=== PATIENT | female | born 1990 | race American Indian/Alaskan Native ===

== ENCOUNTER 2016-10-15 20:03 | Emergency (ER) | payer MEDICARE ==
[2016-10-15 22:19] LABS: Eosinophils % (Auto) 2.3 % (0.0-4.3); Hematocrit 41.6 % (30.3-42.9); Hemoglobin 13.8 gm/dl (10.1-14.3); Mean Corpuscular HGB Conc 33 % (30-34); Mean Corpuscular Hemoglobin 31 pg (28-32); Mean Corpuscular Volume 92 fl (79-97); White Blood Count 8.3 K/mm3 (4.5-11.0)
[2016-10-15 22:21] LABS: Platelet Count 153 K/mm3 (140-440)
[2016-10-15 22:33] LABS: Anion Gap 17 mmol/L; BUN/Creatinine Ratio 18.57; Blood Urea Nitrogen 13 mg/dL (7-17); Carbon Dioxide 23 mmol/L (22-30); Chloride 99.6 mmol/L (98-107); Glucose 88 mg/dL (65-100); Potassium 4.1 mmol/L (3.6-5.0); Sodium 135 mmol/L (137-145)
--- NOTE | 2016-10-16 00:11 | Emergency Department Report ---
HPI - General Chief Complaint: Psych Time Seen by Provider: 10/15/16 23:57 - HPI HPI: Room 17 The patient is a 26-year-old female presenting with a chief complaint of suicidal ideation. The patient states "I feel like killing myself." The patient states the thoughts began today. The patient states her plan to kill himself was to eat soap. Patient denies actually doing anything to try to harm herself. The patient has a history of bipolar disorder and schizophrenia Location: Mental state Duration: One day Quality: Suicidal Severity: Severe Modifying factors: [see above] Context: [see above] Mode of transportation: [not driving] ED Past Medical Hx - Past Medical History Previous Medical History?: Yes Hx Hypertension: Yes Hx Psychiatric Treatment: Yes (BIPOLAR, SCHIZOPHRENIA) - Surgical History Past Surgical History?: No - Family History Family history: no significant - Social History Smoking Status: Current Every Day Smoker Substance Use Type: None (denies illicit drug use) - Medications Home Medications: Home Medications Medication Instructions Recorded Confirmed Last Taken Type Olanzapine [ZyPREXA] 20 mg PO QHS 01/20/16 01/20/16 Unknown History risperiDONE [RisperiDONE] 3 mg PO BID 01/20/16 01/20/16 Unknown History ED Review of Systems ROS: Stated complaint: MH Other details as noted in HPI Comment: All other systems reviewed and negative Constitutional: denies: chills, fever Eyes: denies: eye pain, eye discharge, vision change ENT: denies: ear pain, throat pain Respiratory: denies: cough, shortness of breath, wheezing Cardiovascular: denies: chest pain, palpitations Endocrine: no symptoms reported Gastrointestinal: denies: abdominal pain, nausea, diarrhea Genitourinary: denies: urgency, dysuria, discharge Musculoskeletal: denies: back pain, joint swelling, arthralgia Skin: denies: rash, lesions Neurological: denies: headache, weakness, paresthesias Psychiatric: suicidal thoughts Hematological/Lymphatic: denies: easy bleeding, easy bruising Physical Exam - Physical Exam Vital Signs: Vital Signs 10/15/16 10/15/16 10/15/16 21:04 21:36 23:41 Temperature 98.6 F 98.6 F Pulse Rate 78 78 Respiratory 18 18 18 Rate Blood Pressure 125/79 Blood Pressure 125/79 [Right] O2 Sat by Pulse 98 98 Oximetry Physical Exam: GENERAL: The patient is well-developed well-nourished female lying on stretcher not appearing to be in acute distress. [] HEENT: Normocephalic. Atraumatic. Extraocular motions are intact. Patient has moist mucous membranes. NECK: Supple. Trachea midline CHEST/LUNGS: Clear to auscultation. There is no respiratory distress noted. HEART/CARDIOVASCULAR: Regular. There is no tachycardia. There is no gallop rub or murmur. ABDOMEN: Abdomen is soft, nontender. Patient has normal bowel sounds. There is no abdominal distention. SKIN: There is no rash. There is no edema. There is no diaphoresis. NEURO: The patient is awake, alert, and oriented. The patient is cooperative. The patient has normal speech MUSCULOSKELETAL: There is no evidence of acute injury. ED Course Vital Signs 10/15/16 10/15/16 10/15/16 21:04 21:36 23:41 Temperature 98.6 F 98.6 F Pulse Rate 78 78 Respiratory 18 18 18 Rate Blood Pressure 125/79 Blood Pressure 125/79 [Right] O2 Sat by Pulse 98 98 Oximetry ED Medical Decision Making - Lab Data Result diagrams: 10/15/16 21:54 10/15/16 21:54 Laboratory Tests 10/15/16 10/15/16 10/15/16 21:54 21:54 21:54 WBC 8.3 RBC 4.50 Hgb 13.8 Hct 41.6 MCV 92 MCH 31 MCHC 33 RDW 14.0 Plt Count 153 Lymph % (Auto) 38.0 H [place] % (Auto) 15.3 H Eos % (Auto) 2.3 Baso % (Auto) 1.0 Lymph # 3.2 [place] # 1.3 H Eos # 0.2 Baso # 0.1 Seg Neutrophils % 43.4 Seg Neutrophils # 3.6 Carbon Dioxide 23 BUN 13 Creatinine 0.7 Estimated GFR > 60 BUN/Creatinine Ratio 18.57 Glucose 88 Calcium 9.0 Total Bilirubin Direct Bilirubin Indirect Bilirubin AST ALT Alkaline Phosphatase Total Protein Albumin Albumin/Globulin Ratio Urine Color Urine Turbidity Urine pH Ur Specific [place] Urine Protein Urine Glucose (UA) Urine Ketones Urine Blood Urine Nitrite Urine Bilirubin Urine Urobilinogen Ur Leukocyte Esterase Urine WBC (Auto) Urine RBC (Auto) U Epithel Cells (Auto) Urine Mucus Salicylates Urine Opiates Screen Urine Methadone Screen Acetaminophen Ur Barbiturates Screen Ur Phencyclidine Scrn Ur Amphetamines Screen U Benzodiazepines Scrn Urine Cocaine Screen U Marijuana (THC) Screen Drugs of Abuse Note Plasma/Serum Alcohol < 0.01 10/15/16 10/15/16 10/15/16 21:54 21:54 21:54 WBC RBC Hgb Hct MCV MCH MCHC RDW Plt Count Lymph % (Auto) [place] % (Auto) Eos % (Auto) Baso % (Auto) Lymph # [place] # Eos # Baso # Seg Neutrophils % Seg Neutrophils # Carbon Dioxide BUN Creatinine Estimated GFR BUN/Creatinine Ratio Glucose Calcium Total Bilirubin 0.20 Direct Bilirubin < 0.2 Indirect Bilirubin 0.0 AST 18 ALT 13 Alkaline Phosphatase 75 Total Protein 7.1 Albumin 3.8 L Albumin/Globulin Ratio 1.2 Urine Color Urine Turbidity Urine pH Ur Specific [place] Urine Protein Urine Glucose (UA) Urine Ketones Urine Blood Urine Nitrite Urine Bilirubin Urine Urobilinogen Ur Leukocyte Esterase Urine WBC (Auto) Urine RBC (Auto) U Epithel Cells (Auto) Urine Mucus Salicylates < 0.3 L Urine Opiates Screen Urine Methadone Screen Acetaminophen < 15.0 Ur Barbiturates Screen Ur Phencyclidine Scrn Ur Amphetamines Screen U Benzodiazepines Scrn Urine Cocaine Screen U Marijuana (THC) Screen Drugs of Abuse Note Plasma/Serum Alcohol 10/15/16 10/15/16 23:41 23:41 WBC RBC Hgb Hct MCV MCH MCHC RDW Plt Count Lymph % (Auto) [place] % (Auto) Eos % (Auto) Baso % (Auto) Lymph # [place] # Eos # Baso # Seg Neutrophils % Seg Neutrophils # Carbon Dioxide BUN Creatinine Estimated GFR BUN/Creatinine Ratio Glucose Calcium Total Bilirubin Direct Bilirubin Indirect Bilirubin AST ALT Alkaline Phosphatase Total Protein Albumin Albumin/Globulin Ratio Urine Color Yellow Urine Turbidity Clear Urine pH 6.0 Ur Specific [place] 1.029 Urine Protein 30 mg/dl Urine Glucose (UA) Neg Urine Ketones Neg Urine Blood Neg Urine Nitrite Neg Urine Bilirubin Neg Urine Urobilinogen < 2.0 Ur Leukocyte Esterase Neg Urine WBC (Auto) 2.0 Urine RBC (Auto) 3.0 U Epithel Cells (Auto) 15.0 H Urine Mucus 2+ Salicylates Urine Opiates Screen Presumptive negative Urine Methadone Screen Presumptive negative Acetaminophen Ur Barbiturates Screen Presumptive negative Ur Phencyclidine Scrn Presumptive negative Ur Amphetamines Screen Presumptive negative U Benzodiazepines Scrn Presumptive negative Urine Cocaine Screen Presumptive negative U Marijuana (THC) Screen Presumptive negative Drugs of Abuse Note Disclamer Plasma/Serum Alcohol Sodium 135, potassium 4.1, chloride 99.6 - Differential Diagnosis suicidal ideation, schizophrenia Critical care attestation.: If time is entered above; I have spent that time in minutes in the direct care of this critically ill patient, excluding procedure time. ED Disposition Clinical Impression: Suicidal ideation, Schizophrenia Disposition: [id number]/TX-[id number] PSY HOSP/PSY UNIT Is pt being admited?: No Does the pt Need Aspirin: No Condition: Serious Referrals: PRIMARY CARE, [Primary Care Provider] - 3-5 Days Time of Disposition: 00:12 (awaiting acceptance)
[2016-10-16 00:20] LABS: Alanine Aminotransferase 13 units/L (7-56); Albumin 3.8 g/dL (3.9-5); Albumin/Globulin Ratio 1.2 %; Alkaline Phosphatase 75 units/L (35-129); Total Protein 7.1 g/dL (6.3-8.2)
[2016-10-16 00:21] LABS: Bilirubin,Direct < 0.2 mg/dL (0-0.2)
[2016-10-16 00:24] LABS: Urine Drugs of Abuse Note Disclamer
[2016-10-16 00:31] LABS: Bilirubin,Urine NEG (Negative); Blood,Urine NEG (Negative); Ketones,Urine NEG (Negative); Leukocyte Esterase,Urine NEG (Negative); Mucus,Urine 2+ /HPF; Nitrite,Urine NEG (Negative); Urobilinogen,Urine < 2.0 mg/dL (<2.0)
--- NOTE | 2016-10-16 12:10 | Consultation ---
History of Present Illness - Reason for Consult Consult date: 10/16/16 Reason for consult: Mental Health Evaluation Requesting physician: THERESA STANLEY - Chief Complaint Chief complaint: "What you want" - History of Present Psychiatric Illness The patient is a 26-year-old female presenting with a chief complaint of suicidal ideation. Today patient is calm, but bizarre during the assessment. She would state, "What you want" multiple times during our conversation. She had to be redirected during the assessment possibly responding to some type of stimuli. She would look off (stare), pause, and continue saying "What you want. " She did deny being suicidal, but would not deny or confirm AVH's. Patient is a poor historian at this time. Medications and Allergies Allergies Allergy/AdvReac Type Severity Reaction Status Date / Time No Known Allergies Allergy Unverified 09/30/14 21:58 Home Medications Medication Instructions Recorded Confirmed Last Taken Type Olanzapine [ZyPREXA] 20 mg PO QHS 01/20/16 01/20/16 Unknown History risperiDONE [RisperiDONE] 3 mg PO BID 01/20/16 01/20/16 Unknown History Past psychiatric history - Past Medical History Past Medical History: other (Unable to obtain) Past Surgical History: Other (Unable to obtain) - past Psychiatric treatment and history psychiatric treatment history: Unable to obtaing a psy or fam psy hx. - Social History Social history: other (Unable to obtain) Mental Status Exam - Vital signs Last Vital Signs Temp 98.6 F 10/15/16 21:36 Pulse 78 10/15/16 21:36 Resp 18 10/15/16 23:41 BP 125/79 10/15/16 21:36 Pulse Ox 98 10/15/16 21:36 - Exam Narrative exam: ROS: (+) psychosis MSE: Appearance: calm Behavior: regular eye contact Speech: regular rate and tone Mood: "nothing wrong with me" Affect: labile Thought Process: tangential Thought Content: denies SI/HI's, disorganized Motor Activity: ambulatory Cognition: A/Ox 3 Insight: poor Judgment: poor Results Result Diagrams: 10/15/16 21:54 10/15/16 21:54 Abnormal lab results 10/15/16 10/15/16 10/15/16 Range/Units 21:54 21:54 21:54 Lymph % (Auto) 38.0 H (13.4-35.0) % [place] % (Auto) 15.3 H (0.0-7.3) % [facility] # 1.3 H (0.0-0.8) K/mm3 Albumin 3.8 L (3.9-5) g/dL U Epithel Cells (Auto) (0-13.0) /HPF Salicylates < 0.3 L (2.8-20.0) mg/dL 10/15/16 Range/Units 23:41 Lymph % (Auto) (13.4-35.0) % [facility] % (Auto) (0.0-7.3) % [facility] # (0.0-0.8) K/mm3 Albumin (3.9-5) g/dL U Epithel Cells (Auto) 15.0 H (0-13.0) /HPF Salicylates (2.8-20.0) mg/dL All other labs normal. Assessment and Plan Assessment and plan: Impression: Historical Dx: Per her medical chart Bipolar DO. Unspecified Psychosis. Today patient is calm, but bizarre during the assessment. Possible experiencing perceptional disturbances. DDx: Schizoaffective DO, R/O Schizophrenia Recommendation/Plan: Continue 1o13 with placement to [facility].
[2016-10-16 19:32] VITALS: BP 124/78
== END 2016-10-16 19:34 ==
LOC: ED 20:03 → EEVIPCON 20:03 → ED 10-16 19:34
DX: F20.9 Schizophrenia, unspecified (principal); I10 Essential (primary) hypertension; F31.9 Bipolar disorder, unspecified; F17.200 Nicotine dependence, unspecified, uncomplicated
CPT/HCPCS: 36415; 80048; 80074; 80307; 81001; 85025; 99285; G0480; 80320